=== PATIENT | male | born 1975 | race Two or more races ===

== ENCOUNTER 2018-05-18 09:47 | Outpatient (CLI) | payer OTHER ==
[~2018-05-18 09:47] MED LIST: SKELAXIN800 MG PO
== END 2018-05-18 12:19 | disposition home or self-care (01) ==
LOC: SONOGRAMA 09:47
DX: E04.1 Nontoxic single thyroid nodule (principal)

== ENCOUNTER 2020-02-07 05:45 | Day surgery (SDC) | payer OTHER ==
[~2020-02-07 05:45] MED LIST changes: +COZAAR25 MG PO; +LEVOTHYROXINE25 MCG PO; +SIMVASTA PO; +VITAMIN D-40010 MCG PO; +[UNRECOGNIZED DRUG - OTHER] PO
== END 2020-02-07 13:40 | disposition home or self-care (01) ==
LOC: CIR.AMB 05:45
PROVIDERS: ATTEND Surgery
DX: D17.24 Benign lipomatous neoplasm of skin and subcutaneous tissue of left leg (principal); Z20.828 Contact with and (suspected) exposure to other viral communicable diseases